=== PATIENT | male | born 1950 | race Caucasian/White ===

== ENCOUNTER → 2018-01-24 | Outpatient (CLI) | payer MEDICARE ==
[~2018-01-24] MED LIST: REGADENOSON 0.4 MG/5 ML SYRINGE ONE
== END | disposition home or self-care (01) ==
LOC: CVU 06:34
PROVIDERS: ATTEND Internal Medicine Cardiovascular Disease
DX: Z01.810 Encounter for preprocedural cardiovascular examination (principal); I25.9 Chronic ischemic heart disease, unspecified; I10 Essential (primary) hypertension; E11.9 Type 2 diabetes mellitus without complications
CPT/HCPCS: 0399T; 78452; 93017; 93306; A9502; J2785

== ENCOUNTER 2018-02-10 05:49 | Day surgery (SDC) | payer MEDICARE ==
[~2018-02-10] VITALS: Ht 193 cm; Wt 109.1 kg
[~2018-02-10 05:49] MED LIST changes: +ALPH300C PO; +ASCO100019 PO; +ASPI325T17 PO; +ATOR40TA78 PO; +AZEL137S4 NAS; +CARV12.543 PO; +CHOL10003 PO; +FLUT9.9S NS; +FOLI0.8T2 PO; +GLIM1TAB2 PO; +LACT1CAP37 PO; +LEVO25TA2 PO; +LORA-702 PO; +METF500T3 PO; +MULT-658 PO; +OLOP2.5D5 EACHEYE; +OMEG-14 PO; +RAMI10CA36 PO; -REGADENOSON 0.4 MG/5 ML SYRINGE ONE; +SILD20TA2 PO; +TEST30SO TP; +UBID1CAP43 PO
[2018-02-10 06:14] VITALS: BP 131/73
[2018-02-10 06:58] LABS: BASOPHILS # (AUTO) 0.05 x10^3/uL (0-0.1); BASOPHILS % (AUTO) 1 % (0-1); EOSINOPHILS % (AUTO) 5 % (1-7); LYMPHOCYTES # (AUTO) 1.31 x10^3/uL (1-3.4); LYMPHOCYTES % (AUTO) 21 % (22-44); MD NO; MEAN CORPUSCULAR HEMOGLOBIN 30.8 pg (27.5-34.5); MEAN CORPUSCULAR HGB CONC 33.9 g/dL (33.2-36.2); MEAN CORPUSCULAR VOLUME 91.1 fL (81-97); MEAN PLATELET VOLUME 7.8 fL (7.4-10.4); MONOCYTES # (AUTO) 0.66 x10^3/uL (0.2-0.8); MONOCYTES % (AUTO) 11 % (2-9); NEUTROPHILS # (AUTO) 3.93 x10^3/uL (1.8-6.8); NEUTROPHILS % (AUTO) 63 % (42-75); PLATELET COUNT 190 x10^3/uL (130-400); RED BLOOD COUNT 4.54 x10^6/uL (4.38-5.82)
[2018-02-10 07:06] LABS: ANION GAP 6 mmol/L (5-15); CALCIUM 8.4 mg/dL (8.5-10.1); CHLORIDE 109 mmol/L (98-107); CREATININE 1.19 mg/dL (0.7-1.3)
[2018-02-10] MEDS ORDERED: LIDOCAINE/PF 1%, 30ML ONE (07:07)
[2018-02-10] MEDS ORDERED: DIPHENHYDRAMINE 50 MG/ML, 1ML ONE (07:07)
[2018-02-10] MEDS ORDERED: FENTANYL PF 100 MCG/2ML ONE (07:07)
[2018-02-10] MEDS ORDERED: MIDAZOLAM 1 MG/ML, 2ML ONE (07:07)
== END 2018-02-10 10:29 | disposition home or self-care (01) ==
LOC: CACL 05:49
PROVIDERS: ATTEND Internal Medicine Cardiovascular Disease
DX: R94.39 Abnormal result of other cardiovascular function study (principal); E11.9 Type 2 diabetes mellitus without complications; I10 Essential (primary) hypertension; E78.00 Pure hypercholesterolemia, unspecified; Z79.82 Long term (current) use of aspirin; Z98.890 Other specified postprocedural states; Z01.810 Encounter for preprocedural cardiovascular examination
CPT/HCPCS: 36415; 71046; 80048; 85025; 93458; 99156; C1760; C1894; J1200; J2250; J3010; J3490; Q9967